=== PATIENT | female | born 1990 | race Two or more races ===

== ENCOUNTER 2016-05-31 03:12 | Emergency (ER) | payer SELFPAY ==
[~2016-05-31 03:12] MED LIST: NO MEDICATIONS
== END 2016-05-31 05:07 | disposition home or self-care (01) ==
LOC: SED 03:12
DX: S01.81XA Laceration without foreign body of other part of head, initial encounter (principal); S00.83XA Contusion of other part of head, initial encounter; Z23 Encounter for immunization; W22.8XXA Striking against or struck by other objects, initial encounter; Y92.009 Unspecified place in unspecified non-institutional (private) residence as the place of occurrence of the external cause
CPT/HCPCS: 12051; 90471; 90715; 99283